=== PATIENT | male | born 1990 | race Caucasian/White ===

== ENCOUNTER 2021-12-09 15:28 | Emergency (ER) | payer MEDICAID ==
[~2021-12-09] VITALS: Ht 175.3 cm; Wt 88.6 kg
[2021-12-09 15:31] VITALS: BP 98/50
[2021-12-09] MEDS ORDERED: IBUP-2070 PO (18:01)
== END 2021-12-09 18:13 | disposition home or self-care (01) ==
LOC: EMS 15:32
DX: S63.501A Unspecified sprain of right wrist, initial encounter (principal); X58.XXXA Exposure to other specified factors, initial encounter; Y93.89 Activity, other specified; Y92.89 Other specified places as the place of occurrence of the external cause; Y99.0 Civilian activity done for income or pay
CPT/HCPCS: 99284; 73090-TC; 73110-TC; 73130-TC; Z7502